=== PATIENT | female | born 1970 | race Caucasian/White ===

== ENCOUNTER 2018-06-26 00:36 | Emergency (ER) | payer OTHER ==
[~2018-06-26] VITALS: Ht 157.5 cm; Wt 83.9 kg
[2018-06-26] MEDS ORDERED: XOPENEX0.63 MG/3 (00:48)
[2018-06-26] MEDS ORDERED: SINGULAIR4 M1 (00:48)
[2018-06-26] MEDS ORDERED: NORFLEX100MG PO (04:12)
[2018-06-26] MEDS ORDERED: KETO10TA2 PO (04:12)
== END 2018-06-26 04:21 | disposition home or self-care (01) ==
LOC: ER 00:36
DX: S13.4XXA Sprain of ligaments of cervical spine, initial encounter (principal); S56.911A Strain of unspecified muscles, fascia and tendons at forearm level, right arm, initial encounter; V49.9XXA Car occupant (driver) (passenger) injured in unspecified traffic accident, initial encounter; Y93.89 Activity, other specified; Y92.488 Other paved roadways as the place of occurrence of the external cause; Y99.8 Other external cause status